=== PATIENT | male | born 1945 | race Caucasian/White ===

== ENCOUNTER 2019-09-19 13:15 | Outpatient (CLI) | payer MEDICARE, MEDICAID ==
--- NOTE | 2019-09-19 14:01 | RAD ---
EXAM: Right shoulder 3 views: HISTORY: Chronic pain without recent injury COMPARISON: None FINDINGS: Osteoarthrosis A/C joint and glenohumeral joint. Degenerative changes. No acute fracture or dislocation or other significant acute osseous abnormality. IMPRESSION: No significant acute process.
--- NOTE | 2019-09-19 14:17 | RAD ---
RIGHT KNEE RADIOGRAPHS FOUR VIEWS: 09/19/2019 PROVIDED CLINICAL HISTORY: Chronic pain. FINDINGS: Advanced tricompartment osteophyte formation with medial femorotibial joint space narrowing and genu varum. Ossified intraarticular bodies within Vicente's cyst. No significant knee joint capsular distent ion evident. No evidence for fracture or other acute osseous abnormality. Focus of increased density overlying the soft tissues of the anterior thigh on the lateral view is not included on the additiona l images and is of uncertain etiology and significance. 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 POS: [facility]
--- NOTE | 2019-09-19 15:34 | RAD ---
CERVICAL SPINE SERIES 3 VIEWS: HISTORY: Neck and right shoulder pain. FINDINGS: The vertebral bodies are normal in height. Disk space height is all fairly well preserved with some mild disk narrowing at C6-7. Minimal anterolisthesis of C5 on C6 is noted. There are marked degener ative facet changes present. IMPRESSION: Moderate arthritic changes of the spine mainly related to pronounced degenerative facet changes. POS: [facility]
== END 2019-09-19 13:16 | disposition home or self-care (01) ==
LOC: MADRAD 13:15
PROVIDERS: ATTEND Orthopaedic Surgery
DX: M25.511 Pain in right shoulder (principal); M25.562 Pain in left knee; M47.812 Spondylosis without myelopathy or radiculopathy, cervical region; M17.11 Unilateral primary osteoarthritis, right knee
CPT/HCPCS: 72040

== ENCOUNTER 2020-08-03 13:40 | Emergency (ER) | payer MEDICARE, MEDICAID ==
[2020-08-03] MEDS ORDERED: Iopamidol 370 76% 100 ML VIAL ONE (13:50)
[2020-08-03 14:37] LABS: ALT (SGPT) 29 U/L (8-55); AST (SGOT) 25 U/L (5-34); Albumin 3.1 g/dL (3.4-4.8); Alkaline Phosphatase 109 U/L (40-110); Anion Gap 18 mmol/L (10-20); BUN (Urea Nitrogen) 77 mg/dL (8.4-25.7); Bilirubin, Total 1.2 mg/dL (0.2-1.2); Calc. Creatinine Clearance 0 mL/min (70-130); Calcium 8.6 mg/dL (7.8-10.44); Carbon Dioxide 20 mmol/L (23-31); Chloride 87 mmol/L (98-107); Estimated GFR-MDRD 35; Globulin 2.4 g/dL (2.4-3.5); Glucose 293 mg/dL (83-110); Potassium 5.7 mmol/L (3.5-5.1); Protein, Total 5.5 g/dL (5.8-8.1)
[2020-08-03 14:50] LABS: Anisocytosis SLIGHT = 6-15 cells (100X) (0-5/hpf); Band 12 % (5-11); Hemoglobin 11.9 g/dL (14.0-18.0); Lymphocytes 5 % (21-51); MDiff Complete? YES; Macrocytosis SLIGHT = 6-15 cells (100X) (0-5/hpf); Mean Corpuscular HGB CONC 32.5 g/dL (32.0-36.0); Mean Corpuscular Volume 83.2 fL (78.0-98.0); Mean Platelet Volume 8.8 fL (7.4-10.4); Monocytes 7 % (0-10); Neutrophil 76 % (42-75); Platelet Count 230 thou/uL (130-400); Platelet Morphology Comment Appears Adequate; RBC Distribution Width 12.7 % (11.5-14.5); Red Blood Cell (RBC) Count 4.41 mill/uL (4.70-6.10); White Blood Cell (WBC) Count 33.1 thou/uL (4.8-10.8)
[2020-08-03 14:52] LABS: Sodium 119 mmol/L (136-145)
[2020-08-03 14:54] LABS: Bilirubin Negative (Negative); Blood, Urine Large (Negative); Clarity Slightly Cloudy (Clear); Glucose, Urine (Dipstick) 250 mg/dL (Negative); Ketone, Urine Negative (Negative); Leukocyte Moderate (Negative); Nitrite Negative (Negative); Protein, Urine (Dipstick) Negative (Neg-Trace); Urobilinogen 0.2 mg/dL (Less than 2); pH, Urine 5.5 (5.0-9.0)
[2020-08-03 14:56] LABS: Bacteria/HPF 3+ HPF (None Seen); Squamous Epithelial 0-3 HPF (0-3); WBC/HPF Greater Than 50 HPF (0-3)
[2020-08-03] MEDS ORDERED: Sodium Chloride 0.9% 500 ML ONE (15:14)
--- NOTE | 2020-08-03 15:16 | CT ---
CT ABDOMEN PELVIS WITH IV CONTRAST HISTORY: Weakness and abdominal pain COMPARISON: None FINDINGS: There are dependent changes in the lung bases. A calcified gallstones present. The liver, spleen, acosta creas appear normal. There are indeterminate bilateral adrenal nodules measuring 2 cm in the right and 13 mm on the left. There is an indeterminate 14 mm cortical lesion in the right kidney and a couple of cysts in the righ t kidney. An indeterminate complex 18 x 16 mm mass is seen in the superior pole of the left kidney. No free air, free fluid or lymphadenopathy seen in the abdomen or pelvis. The small bowel loops are n ot abnormally dilated. There is colonic diverticulosis without diverticulitis. There are vascular calcifications without evidence of aneurysmal dilatation of the abdominal aorta. There are degenerati ve changes in the spine. IMPRESSION: 1. Indeterminate adrenal and renal lesions. Further evaluation with contrast-enhanced MRI with inclus ion of subtraction images is recommended. 2. Cholelithiasis 3. Colonic diverticulosis
[2020-08-03] MEDS ORDERED: Sodium Chloride 0.9% 100 ML ONE (15:19)
[2020-08-03] MEDS ORDERED: cefTRIAXone\\ROCEPHIN 1 GM VIAL ONE (15:19)
== END 2020-08-03 17:22 | disposition short-term general hospital (02) ==
LOC: MADERS 13:40
DX: N39.0 Urinary tract infection, site not specified (principal); L89.329 Pressure ulcer of left buttock, unspecified stage; L89.319 Pressure ulcer of right buttock, unspecified stage; R10.816 Epigastric abdominal tenderness; R10.811 Right upper quadrant abdominal tenderness; R10.812 Left upper quadrant abdominal tenderness; R60.0 Localized edema; E87.5 Hyperkalemia; E87.1 Hypo-osmolality and hyponatremia; I11.0 Hypertensive heart disease with heart failure; I50.9 Heart failure, unspecified; I25.10 Atherosclerotic heart disease of native coronary artery without angina pectoris; E11.9 Type 2 diabetes mellitus without complications; E66.9 Obesity, unspecified; Z86.73 Personal history of transient ischemic attack (TIA), and cerebral infarction without residual deficits; Z79.84 Long term (current) use of oral hypoglycemic drugs; Z79.82 Long term (current) use of aspirin; Z79.899 Other long term (current) drug therapy
CPT/HCPCS: 36415; 74177; 80053; 81003; 81015; 83605; 83880; 84484; 85025; 87040; 87077; 87149; 87186; 93005; 94760; 96365; J0696; J3490; J7030; Q9967